=== PATIENT | male | born 1945 | race Hispanic/Latino ===

== ENCOUNTER 2018-03-18 22:55 | Emergency (ER) | payer MEDICARE, OTHER ==
[2018-03-18 23:08] VITALS: BP 156/88; PULSE 74; RESP 20; TEMP 96.6; O2SAT 98
--- NOTE | 2018-03-18 23:16 | ED PDOC ---
HPI: Male Pain Time Seen by Provider: 03/18/18 23:14 Chief Complaint (Nursing): Male Genitourinary Chief Complaint (Provider): URINARY RETENTION History Per: Patient (72 Y/O MALE HERE WITH URINARY RETENTION AND UNABLE TO URINATE SINCE 2PM. DENIES ANY HEMATURIA/FEVERS/CHILLS. HAS HAD PREVIOUS URINARY RETENTION 1 YEAR AGO. PATIENT TAKES FLOMAX DAILY AND LAST TOOK AT 5PM TODAY.) Past Medical History Reviewed: Historical Data, Nursing Documentation, Vital Signs Vital Signs: Last Vital Signs Temp 96.6 F L 03/18/18 23:04 Pulse 74 03/18/18 23:04 Resp 20 03/18/18 23:04 BP 156/88 H 03/18/18 23:04 Pulse Ox 98 03/18/18 23:04 - Medical History PMH: Benign Prostatic Hyperplasia, Hyperlipidemia - Family History Family History: States: No Known Family Hx - Home Medications Home Medications: Ambulatory Orders Medication Instructions Recorded Docusate [Colace] 100 mg PO DAILY #10 cap 12/30/15 Fenofibrate [Lofibra] 160 mg PO DAILY 12/30/15 Tamsulosin [Flomax] 1 cap PO DAILY 12/30/15 Ciprofloxacin HCl [Cipro] 500 mg PO BID #14 tablet 03/18/18 Tamsulosin [Flomax] 0.4 mg PO DAILY #10 cap 03/18/18 - Allergies Allergies/Adverse Reactions: Allergies Allergy/AdvReac Type Severity Reaction Status Date / Time No Known Allergies Allergy Verified 12/30/15 16:42 Review of Systems ROS Statement: Except As Marked, All Systems Reviewed And Found Negative Physical Exam - Reviewed Nursing Documentation Reviewed: Yes Vital Signs Reviewed: Yes - Physical Exam Appears: Positive for: Well, Non-toxic, No Acute Distress Head Exam: Positive for: ATRAUMATIC, NORMAL INSPECTION, NORMOCEPHALIC Skin: Positive for: Normal Color, Warm, DRY Eye Exam: Positive for: EOMI, Normal appearance, PERRL ENT: Positive for: Normal ENT Inspection Neck: Positive for: Normal, Painless ROM Cardiovascular/Chest: Positive for: Regular Rate, Rhythm Respiratory: Positive for: CNT, Normal Breath Sounds Gastrointestinal/Abdominal: Positive for: Normal Exam, Soft, Tenderness ( ABDOMINAL DISTENTION) Back: Positive for: Normal Inspection Extremity: Positive for: Normal ROM Neurologic/Psych: Positive for: Alert, Oriented - ECG O2 Sat by Pulse Oximetry: 98 - Progress ED Course And Treament: VAZQUEZ CATHETER PLACED IN BLADDER BY NURSING STAFF WITH MODERATE RELIEF OF SYMPTOMS. 600 CC OF URINE NOTED. CIPRO 500 MG X 1 DOSE IN ED. Disposition - Clinical Impression Clinical Impression: Urinary retention - Patient ED Disposition Is Patient to be Admitted: No - Disposition Referrals: Vitor Pugh Jr., MD [Staff Provider] - Disposition: Routine/Home Disposition Time: 00:01 Condition: FAIR Prescriptions: Ciprofloxacin HCl [Cipro] 500 mg PO BID #14 tablet Tamsulosin [Flomax] 0.4 mg PO DAILY #10 cap Instructions: Urinary Retention (DC) Print Language: FRENCH
== END 2018-03-19 01:30 | disposition home or self-care (01) ==
LOC: H.ER 22:55
DX: R39.9 Unspecified symptoms and signs involving the genitourinary system (principal); E78.5 Hyperlipidemia, unspecified; N40.1 Benign prostatic hyperplasia with lower urinary tract symptoms